=== PATIENT | male | born 1980 | race Caucasian/White ===

== ENCOUNTER 2021-05-30 15:57 | Emergency (ER) | payer OTHER ==
[~2021-05-30] VITALS: Ht 172.7 cm; Wt 80.7 kg
[~2021-05-30 15:57] MED LIST: AVELOX ABC PAC400 MG; KETOROLAC TROME10 MG
[2021-05-30] MEDS ORDERED: MULTI VITAMIN1 EACH PO (16:04)
[2021-05-30] MEDS ORDERED: CANDESARTAN CILE8 MG PO (16:05)
[2021-05-30] MEDS ORDERED: PEPCID AC20 MG PO (17:18)
== END 2021-05-30 17:33 | disposition home or self-care (01) ==
LOC: ER 15:57
DX: R10.84 Generalized abdominal pain (principal); K58.9 Irritable bowel syndrome, unspecified; I10 Essential (primary) hypertension

== ENCOUNTER 2022-08-18 09:18 | Emergency (ER) | payer OTHER ==
[~2022-08-18] VITALS: Ht 172.7 cm; Wt 83.5 kg
[~2022-08-18 09:18] MED LIST changes: +CANDESARTAN CILE8 MG PO; +MULTI VITAMIN1 EACH PO; +PEPCID AC20 MG PO
[2022-08-18] MEDS ORDERED: ECOTRIN81 MG (10:04)
== END 2022-08-18 13:09 | disposition home or self-care (01) ==
LOC: ER 09:18
DX: J10.1 Influenza due to other identified influenza virus with other respiratory manifestations (principal); Z20.822 Contact with and (suspected) exposure to COVID-19